=== PATIENT | female | born 1995 | race Caucasian/White ===

== ENCOUNTER 2021-03-03 12:26 | Emergency (ER) | payer OTHER ==
[~2021-03-03 12:26] MED LIST: BIOTIN1000 MCG PO; CIPRO500 MG PO; NAPROXEN500 MG PO; NORCO 5-325 TA1 EACH PO; PHENERGAN12.5 M1 PO; ZOFRAN4 MG PO
[2021-03-03 13:23] LABS: BASOPHIL 0.6 % (0-2); EOSINOPHIL 1.3 % (0-5); HCT 44.7 % (37.0-47.0); HGB 15.3 g/dl (12.5-16.0); LYMPHOCYTE 18.5 % (15-48); MCH 30.4 pg (25.0-31.0); MCHC 34.2 g/dL (32.0-36.0); MCV 88.9 fL (78.0-100.0); MONOCYTE 5.3 % (0-12); MPV 10.6 fL (6.0-9.5); NRBC 0; PLT 231 K/uL (150-400); RBC 5.03 M/uL (4.20-5.40); RDW 12.3 % (11.5-14.0); WBC 8.9 K/uL (4.0-10.5)
[2021-03-03 13:24] LABS: BILIRUBIN 1+ mg/dL (NEGATIVE); BLOOD 3+ Ery/uL (NEGATIVE); CLARITY CLEAR (CLEAR); COLOR YELLOW (YELLOW); GLUCOSE (U) NORMAL (NORMAL); LEUKOCYTES TRACE Leu/uL (NEGATIVE); NITRITE NEGATIVE (NEGATIVE); PROTEIN 2+ mg/dL (NEGATIVE); SPECIFIC GRAVITY >=1.030 (1.001-1.030)
[2021-03-03 13:36] LABS: BACTERIA 1+; URINARY RBC TNTC; URINARY WBC RARE
[2021-03-03 13:45] LABS: ALBUMIN 4.8 g/dL (3.4-5.0); BILIRUBIN - TOTAL 0.3 mg/dL (0.2-1.0); BUN/CREAT RATIO (CALC) 13.8 RATIO; CREATININE 0.65 mg/dL (0.51-0.95); GLOBULIN (CALCULATION) 2.4 g/dL; POTASSIUM 3.8 mmol/L (3.5-5.1); TOTAL PROTEIN 7.2 g/dL (6.4-8.2)
[2021-03-03 15:58] LABS: AMPHETAMINES NEGATIVE (NEGATIVE); BARBITURATES NEGATIVE (NEGATIVE); ECSTASY (MDMA) NEGATIVE (NEGATIVE); MARIJUANA (THC) POSITIVE (NEGATIVE); METHADONE NEGATIVE (NEGATIVE); OPIATES NEGATIVE (NEGATIVE); OXYCODONE NEGATIVE (NEGATIVE)
[2021-03-03] MEDS ORDERED: BACTRIM DS TAB1 EACH PO (17:14)
[2021-03-06 22:10] LABS: CHLAMYDIA TRACHOMATIS, NAA Negative (Negative); NEISSERIA GONORRHOEAE, NAA Negative (Negative)
== END 2021-03-03 17:33 | disposition home or self-care (01) ==
LOC: FER 12:26
PROVIDERS: Internal Medicine; Nurse Practitioner Family
DX: N39.0 Urinary tract infection, site not specified (principal); R55 Syncope and collapse; F17.210 Nicotine dependence, cigarettes, uncomplicated; Z88.6 Allergy status to analgesic agent
CPT/HCPCS: 36415; 80053; 80305; 81001; 85025; 87088; 87491; 87591; J7030